=== PATIENT | female | born 1955 | race Caucasian/White ===

== ENCOUNTER 2017-04-30 03:55 | Inpatient (IN) | payer BC ==
[2017-04-30] MEDS ORDERED: Succinylcholine Chloride 20 MG/ML 10 ml SYRINGE FS ONE (03:59)
[2017-04-30] MEDS ORDERED: Fentanyl 20 MCG/ML 250 ML ONE (04:22)
[2017-04-30 04:36] LABS: #Eosinphils 0.1 thou/uL (0.0-0.7); #Lymphocytes 4.9 thou/uL (1.20-3.40); #Monocytes 0.3 thou/uL (0.11-0.59); %Basophils 0.4 % (0.0-1.0); %Eosinophils 0.6 % (0.0-10.0); %Lymphocytes 39.7 % (21.0-51.0); %Monocytes 2.2 % (0.0-10.0); Hematocrit 37.4 % (36.0-47.0); Mean Platelet Volume 7.3 fL (7.4-10.4); Red Blood Cell (RBC) Count 3.87 mill/uL (4.20-5.40); White Blood Cell (WBC) Count 12.3 thou/uL (4.8-10.8)
[2017-04-30 04:42] LABS: PTT 22.9 SEC (22.9-36.1); Prothrombin Time 12.5 SEC (12.0-14.7)
[2017-04-30 04:47] LABS: Amphetamine Not Detected (NotDetected); Methadone Not Detected (NotDetected); Methamphetamine Not Detected (NotDetected)
[2017-04-30 04:47] LABS: Sodium 141 mmol/L (135-148)
[2017-04-30 04:48] LABS: Mechanical Tidal Volume 450 ml; Mode SIMV; Modified Allen's Test POSITIVE; Pressure Support 10 cmH2O; Vent YES
[2017-04-30 05:03] LABS: ALT (SGPT) 16 U/L (8-55); AST (SGOT) 24 U/L (5-34); Acetaminophen Less than 6.0 mcg/mL (10.0-30.0); Alkaline Phosphatase 59 U/L (40-150); Anion Gap 13 mmol/L (10-20); BUN (Urea Nitrogen) 20 mg/dL (9.8-20.1); Bilirubin, Total 0.3 mg/dL (0.2-1.2); Calc. Creatinine Clearance 0 mL/min (70-130); Carbon Dioxide 24 mmol/L (23-31); Chloride 107 mmol/L (98-107); Estimated GFR-MDRD 77; Globulin 2.7 g/dL (2.4-3.5); Lipase 28 U/L (8-78); Magnesium 2.1 mg/dL (1.6-2.6); Protein, Total 6.6 g/dL (6.0-8.3); Salicylate Less than 8.0 mg/dL (15.0-30.0)
[2017-04-30 05:05] LABS: Lactic Acid - Sepsis 1.9 mmol/L (0.5-2.2)
[2017-04-30] MEDS ORDERED: Sodium Chloride 0.9% 1,000 ML IV SCH (05:45)
--- NOTE | 2017-04-30 06:54 | HP ---
REASON FOR ADMISSION: Overdose on Klonopin and Wellbutrin, acute respiratory failure with hypoxia. HISTORY OF PRESENT ILLNESS: Please note, the majority of this history is obtained by my talking to patient's who is at bedside, ER physician and prior records as patient is currently intubated. Per , she apparently was talking about her son and got upset. She was arguing a bit with her and finally went to bed. Around 3:00, patient was on the floor with all her pillows. The tried to wake her up, but she was slurring and was not herself. He called EMS and patient was brought to emergency room. In the ER, the patient was unresponsive and was choking on her vomitus. It is unclear what she overdosed on. The patient is on Klonopin, Wellbutrin, Synthroid, and acid pill as far as knows. She is on vent at present with tidal volume of 450, FiO2 of 60, PEEP of 5, and pressure support of 10. PAST MEDICAL AND SURGICAL HISTORY: History of hypothyroidism, depression, PTSD , questionable bipolar disorder, prior hospitalizations to inpatient psychiatric unit twice at [facility], once in [facility] in [place], breast augmentation surgery and hysterectomy. CURRENT MEDICATIONS: The goes to [facility] on [address] and we will obtain a complete list from there. For now per , she is on Klonopin, Wellbutrin, Synthroid and acid pill. ALLERGIES: To PHENERGAN and SULFA. PERSONAL HISTORY: Does not abuse alcohol or drugs. No history of smoking. Lives with her of 45 years. FAMILY HISTORY: Older sister from overdose. Mother has COPD. Father is healthy and is 85 years old. REVIEW OF SYSTEMS: Cannot be obtained as the patient is intubated and is obtunded. PHYSICAL EXAMINATION: GENERAL: Patient is a 61-year-old female who is currently intubated. VITAL SIGNS: Blood pressure 164/90, pulse 90 per minute, respiratory rate 14 per minute, saturating 94% on 60% FIO2 on the ventilator. The patient was hypothermic on arrival and is currently on a Lisa Hugger. NECK: Supple, no elevated JVD. EYES: Pupils are 3 mm and sluggishly reacting to light. Oral cavity mucous membranes are dry. Patient is orally intubated up to 22 cm on the endotracheal tube to the incisor, no exudates seen. CARDIOVASCULAR: S1, S2 heard. Regular rhythm. RESPIRATORY: Air entry 1+ bilateral. Scattered rhonchi plus bilateral. ABDOMEN: Soft, bowel sounds heard. No tenderness, rigidity or guarding. EXTREMITIES: No peripheral edema or calf tenderness. VASCULAR SYSTEM: Peripheral pulses 1+ bilateral. No ischemic ulcerations or gangrene. CENTRAL NERVOUS SYSTEM: No gross localizing signs seen. Patient is not oriented and is intubated. PSYCHIATRIC: Cannot be assessed due to her current cognitive status. LABORATORY DATA AND X-RAY FINDINGS: White count of 12, H&H is 12 and 37, platelet count 404 with 57% neutrophils, MCV is 96. PT, INR, PTT within normal limits. Blood gas done on 60% FIO2 shows a pH of 7.42, pCO2 of 37, pO2 of 76, potassium 3.4, sodium 141, BUN 20, creatinine 0.7, glucose 153. Liver enzymes within normal limits. Magnesium is 2.1, albumin is 3.9. Lipase is 28. Urine drug screen is negative. Plasma alcohol less than 10. Acetaminophen less than 6. Salicylates less than 8. Chest x-ray by my review shows no acute infiltrate. There appears to be paralysis or partial paralysis of right hemidiaphragm. EKG done shows normal sinus rhythm at 85 beats per minute. CLINICAL IMPRESSION AND PLAN: Patient will be admitted to ICU for acute respiratory failure with hypoxia and intubated for airway due to overdose. It is unclear what she overdosed on. She is normally on Klonopin, Wellbutrin, Synthroid, and acid pill. We will try to obtain her current medication list from [facility] on [address] [place] [address]. She will be on normal saline at 100 mL per hour along with DuoNeb q.6 hours. We will obtain a Pulmonary Critical Care consultation with Dr. Cardoso. Repeat blood gas will be obtained in 3 hours. She will be kept n.p.o. for now. We will continue to closely monitor her in ICU. KIMBERLY
[2017-04-30 07:36] LABS: Bilirubin Negative (Negative); Blood, Urine Negative (Negative); Glucose, Urine (Dipstick) Negative (Negative); Ketone, Urine Negative (Negative); Nitrite Negative (Negative); Protein, Urine (Dipstick) Negative (Neg-Trace); Urobilinogen 0.2 mg/dL (0.2-1.0)
[2017-04-30] MEDS ORDERED: Acetaminophen 325 MG TAB PO PRN (07:50)
[2017-04-30] MEDS ORDERED: Ondansetron ODT 4 MG TAB PO PRN (07:50)
[2017-04-30] MEDS ORDERED: Ondansetron HCl/PF 4 MG/2 ML Vial IVP PRN (07:50)
--- NOTE | 2017-04-30 08:50 | CT ---
NONCONTRAST HEAD CT: Date: 04/30/17 HISTORY: Overdose 1 hour prior to arrival. Altered mental status. COMPARISON: 06/27/14. TECHNIQUE: Noncontrast head CT is performed from skull base to skull vertex. FINDINGS: No parenchymal hemorrhage. No extra-axial hematoma. No midline shift. Basilar cisterns are patent. Br ain volume is age-appropriate. Cortical macias-white matter differentiation is preserved. Ventricles and sulci are patent and symmetric. Calvarium is intact. Adequate aeration of the sinuses and mastoid air cells. IMPRESSION: No acute intracranial process. POS: [facility]
[2017-04-30] MEDS: Enoxaparin Sodium 40 MG/0.4 ML SYRINGE SC SCH (09:08)
[2017-04-30] MEDS: Famotidine/PF 20 mg/2ml Vial SLOW IVP SCH ×2 (09:08→23:11)
--- NOTE | 2017-04-30 09:47 | RAD ---
1 VIEW CHEST: Date: 04/30/17 HISTORY: Altered mental status. Respiratory distress. COMPARISON: 06/30/16. FINDINGS: There is an endotracheal tube with the distal tip at the level of the clavicles. Nasogastric tube ext ends beyond the diaphragm. Distal tip is in the left upper quadrant. Normal cardiac silhouette. Lungs are hyperinflated. No consolidation or mass. No pneumothorax or osseous abnormalities. There is mild elevation of the right hemidiaphragm with decreased volume in the right lung. Significa nce is uncertain. IMPRESSION: 1. Diminished lung volume of the right hemithorax. No associated consolidation or obvious atelectasi s. 2. Endotracheal and nasogastric tube as above. POS: [facility]
[2017-04-30] MEDS: Levothyroxine Sodium 75 MCG TAB PO SCH (11:35)
--- NOTE | 2017-04-30 12:57 | CON ---
DATE OF CONSULTATION: 04/30/2017 SERVICE: Pulmonary Medicine. REASON FOR CONSULTATION: ICU patient. HISTORY OF PRESENT ILLNESS: The patient is a 61-year-old white female with past medical history significant for major depressive disorder. She was in her usual state of health. She had some suicidal ideation. She does have multiple medications including clonazepam, lamotrigine, and bupropion. She became encephalopathic and was brought to the emergency department. Because she was protecting her airway, she was subsequently intubated. She is resting currently on mechanical ventilation. She is doing some purposeful activity, but not following any commands. I cannot obtain any additional elements of the history from her. PAST MEDICAL HISTORY: 1. Major depressive disorder. 2. Hypothyroidism. 3. PTSD. PAST SURGICAL HISTORY: 1. Bilateral breast augmentation. 2. Hysterectomy. ALLERGIES: PHENERGAN and SULFA. MEDICATIONS: List for her inpatient medications was reviewed. No specific updates were made at this time. SOCIAL HISTORY: Negative for alcohol, tobacco or illicit drug use. She lives with her of 45 years and has no exposure to chemicals, dust asbestos or tuberculosis based on what he says. FAMILY HISTORY: Noncontributory. REVIEW OF SYSTEMS: This cannot be obtained as the patient is currently intubated and sedated. PHYSICAL EXAMINATION: VITAL SIGNS: Afebrile, pulse 89, blood pressure 97/44, respirations 14, saturation 96% on 31% FiO2 and PEEP of 5. GENERAL: The patient is intubated and under the influence of sedating medications. HEENT: Normocephalic, atraumatic. Sclerae are white. Conjunctivae pink. Oral and nasal mucosa is moist without lesions. LUNGS: Decent air entry. There is no prolonged expiratory phase, wheezing, rhonchi or crackles. HEART: Normal rate, regular. ABDOMEN: Soft, nontender, nondistended, bowel sounds positive. MUSCULOSKELETAL: No cyanosis or clubbing. No pitting in the bilateral lower extremities. NEUROLOGIC: Grossly nonfocal. LABORATORY DATA: WBC 12.3, hemoglobin 12.4, and platelets 404,000. INR 0.9. A pH 7.42, pCO2 37, pO2 76 on 60% FiO2 at the time. Basic metabolic profile, liver function studies are unremarkable. Lactate negative. Potassium 3.4. Urinalysis is unremarkable. Urine drug screen is negative for lithium, acetaminophen, salicylate, alcohol, and all other toxins. IMAGIN. CT of the brain demonstrates no acute intracranial abnormality. 2. Chest x-ray demonstrates right lower lobe infiltrate. There is elevation of the right hemidiaphragm, suggesting some degree of volume loss on the right base. The endotracheal tube is in good position and there is an enteric catheter coursing well below the level of the diaphragm. ASSESSMENT: 1. Acute hypoxic respiratory failure. 2. Atelectasis of the right lower lobe. 3. Metabolic encephalopathy. 4. Suicide attempt with polysubstance drug overdose. PLAN: We will let her sleep off her medications. We will hold sedation. If she wakes up smoothly, extubation will be considered. Otherwise, we will have to put her back down this evening with a little bit of propofol and/or fentanyl. If she wakes up smoothly; however, a spontaneous breathing trial and possible extubation will be considered. We will wean oxygen as tolerated. We will watch for developing signs or symptoms of sepsis. If present, antibiotics may be considered. Critical care time: 30 minutes. MTDD
--- NOTE | 2017-04-30 14:15 | PDOC.PN ---
- Subjective Encounter Start Date: 04/30/17 Encounter Start Time: 14:13 Subjective: remains intubated. at bedside.care discussed -: remain sedated for now - Objective MAR Reviewed: Yes Vital Signs & Weight: Vital Signs (12 hours) Pulse Resp BP Pulse Ox 04/30/17 12:16 88 11 L 96 04/30/17 10:58 89 97/44 L 04/30/17 08:10 89 98/46 L Result Diagrams: 04/30/17 04:21 04/30/17 04:21 Phys Exam - Physical Examination Constitutional: NAD intubated HEENT: PERRLA, moist MMs, sclera anicteric, oral pharynx no lesions Neck: no nodes, no JVD, supple, full ROM Respiratory: no wheezing, no rales, no rhonchi, clear to auscultation bilateral Cardiovascular: RRR, no significant murmur Gastrointestinal: soft, non-tender, no distention, positive bowel sounds Musculoskeletal: no edema, pulses present Neurological: moves all 4 limbs Deviation from normal: sedated Dx/Plan (1) Acute hypoxemic respiratory failure Code(s): J96.01 - ACUTE RESPIRATORY FAILURE WITH HYPOXIA Status: Acute (2) Overdose Code(s): T50.901A - POISONING BY UNSP DRUG/MEDS/BIOL SUBST, ACCIDENTAL, INIT Status: Acute (3) Hypokalemia Code(s): E87.6 - HYPOKALEMIA Status: Acute (4) Anxiety and depression Code(s): F41.9 - ANXIETY DISORDER, UNSPECIFIED; F32.9 - MAJOR DEPRESSIVE DISORDER, SINGLE EPISODE, UNSPECIFIED Status: Chronic (5) Bipolar disorder Code(s): F31.9 - BIPOLAR DISORDER, UNSPECIFIED Status: Chronic (6) Hypothyroidism Code(s): E03.9 - HYPOTHYROIDISM, UNSPECIFIED Status: Chronic - Plan plan discussed w/ family, DVT proph w/SCDs cont supportive care. Veny weaning per PCCM> -: am labs.hemodynamically stable. -: kevin took about 15-20 Tabs ech of klonopin,wellbutrin & Lamotrigine -: continous cariac monitoring. -: replace & recheck Potasium * . Review of Systems - Review of Systems Other: can not be obtained due to sedation and intubated state - Medications/Allergies Allergies/Adverse Reactions: Allergies Allergy/AdvReac Type Severity Reaction Status Date / Time promethazine [From Phenergan] Allergy Verified 07/08/16 17:13 Sulfa (Sulfonamide Allergy Verified 07/08/16 17:13 Antibiotics) Medications: Current Medications Acetaminophen (Tylenol) 650 mg KS Q4H PRN PRN Reason: Headache/Fever or Pain Acetaminophen (Tylenol) 650 mg PO Q4H PRN PRN Reason: Headache/Fever or Pain Stop: 04/30/17 17:00 Albuterol/Ipratropium (Duoneb) 3 ml NEB [id number] [facility] Last Admin: 04/30/17 12:16 Dose: 3 ml Enoxaparin Sodium (Lovenox) 40 mg SC 0900 [facility] Last Admin: 04/30/17 09:08 Dose: 40 mg Famotidine (Pepcid) 20 mg SLOW IVP Q12HR [facility] Last Admin: 04/30/17 09:08 Dose: 20 mg Sodium Chloride (1/2 Normal Saline) 1,000 mls @ 75 mls/hr IV .[id number] [facility] Levothyroxine Sodium (Synthroid) 75 mcg PO 0600 [facility] Last Admin: 04/30/17 11:35 Dose: Not Given Ondansetron HCl (Zofran) 4 mg IVP Q6H PRN PRN Reason: Nausea/Vomiting Stop: 04/30/17 17:00 Ondansetron HCl (Zofran Odt) 4 mg PO Q6H PRN PRN Reason: Nausea/Vomiting Stop: 04/30/17 17:00 Potassium Chloride (Klor-Con) 40 meq PO Q4H [facility] Stop: 04/30/17 16:31 Sodium Chloride (Flush - Normal Saline) 10 ml IVF Q12HR [facility] Last Admin: 04/30/17 09:14 Dose: 10 ml Sodium Chloride (Flush - Normal Saline) 10 ml IVF PRN PRN PRN Reason: Saline Flush
[2017-04-30] MEDS: Sodium Chloride 0.45% 1,000 ML IV SCH ×2 (14:48→23:13)
[2017-04-30 17:04] VITALS: BMI 19.8
[2017-04-30] MEDS ORDERED: Propofol 1,000 MG/100 ML VIAL IV ONE (19:01)
[2017-04-30] MEDS ORDERED: Propofol 1,000 MG/100 ML VIAL IV PRN (19:17)
[2017-04-30] MEDS ORDERED: FLU VACC QS2017-18 36 mo. & older 0.5 ML SYRINGE IM ONE (21:00)
[2017-05-01 05:05] LABS: Anion Gap 9 mmol/L (10-20); BUN (Urea Nitrogen) 14 mg/dL (9.8-20.1); Calc. Creatinine Clearance 80 mL/min (70-130); Carbon Dioxide 24 mmol/L (23-31); Chloride 107 mmol/L (98-107); Estimated GFR-MDRD 89; Magnesium 1.7 mg/dL (1.6-2.6); Phosphorus 2.3 mg/dL (2.3-4.7)
[2017-05-01 05:08] LABS: #Lymphocytes 0.8 thou/uL (1.20-3.40); #Monocytes 0.4 thou/uL (0.11-0.59); #Neutrophils 8.3 thou/uL (1.40-6.50); %Basophils 0.1 % (0.0-1.0); %Eosinophils 0.2 % (0.0-10.0); %Lymphocytes 7.9 % (21.0-51.0); %Monocytes 4.4 % (0.0-10.0); Hematocrit 32.5 % (36.0-47.0); Mean Platelet Volume 7.5 fL (7.4-10.4); Red Blood Cell (RBC) Count 3.29 mill/uL (4.20-5.40); White Blood Cell (WBC) Count 9.5 thou/uL (4.8-10.8)
[2017-05-01] MEDS: Levothyroxine Sodium 75 MCG TAB PO SCH (06:26)
[2017-05-01] MEDS: Enoxaparin Sodium 40 MG/0.4 ML SYRINGE SC SCH (08:45)
[2017-05-01] MEDS: Famotidine/PF 20 mg/2ml Vial SLOW IVP SCH (08:45)
--- NOTE | 2017-05-01 14:10 | PDOC.PN ---
- Subjective Encounter Start Date: 05/01/17 Encounter Start Time: 14:09 Subjective: remains intubated .failed weaning trial this am d/y agitation - Objective Vital Signs & Weight: Vital Signs (12 hours) Temp Pulse Resp BP Pulse Ox 05/01/17 14:07 107 H 124/54 L 05/01/17 13:25 98 05/01/17 12:00 19 05/01/17 11:00 97.6 F 05/01/17 10:00 16 05/01/17 09:54 91 112/57 L 05/01/17 08:00 98.3 F 91 12 100 05/01/17 07:00 98.2 F 05/01/17 06:00 13 05/01/17 04:00 97.7 F 20 05/01/17 02:40 98 Weight Admit Weight 2.032 oz Most Recent Monitor Data Heart Rate from ECG 101 NIBP 119/55 NIBP BP-Mean 80 Respiration from ECG 15 SpO2 98 I&O: 04/30/17 05/01/17 05/02/17 06:59 06:59 06:59 Intake Total 2265 Output Total 2320 355 Balance -55 -355 Result Diagrams: 05/01/17 03:58 05/01/17 03:58 Additional Labs: Microbiology 04/30/17 04:19 Venous blood - Right Hand Blood Culture - Preliminary Specimen has been received and culture in progress. No Growth to date. 04/30/17 04:10 Venous blood - Right Arm Blood Culture - Preliminary Specimen has been received and culture in progress. No Growth to date. Phys Exam - Physical Examination Constitutional: NAD HEENT: PERRLA, moist MMs, sclera anicteric, 2+ tonsils Neck: no nodes, no JVD, supple, full ROM Respiratory: no wheezing, no rales, no rhonchi Cardiovascular: RRR, no significant murmur Gastrointestinal: soft, non-tender, no distention, positive bowel sounds Musculoskeletal: no edema, pulses present sedated Deviation from normal: sedated Dx/Plan (1) Acute hypoxemic respiratory failure Code(s): J96.01 - ACUTE RESPIRATORY FAILURE WITH HYPOXIA Status: Acute (2) Overdose Code(s): T50.901A - POISONING BY UNSP DRUG/MEDS/BIOL SUBST, ACCIDENTAL, INIT Status: Acute (3) Hypokalemia Code(s): E87.6 - HYPOKALEMIA Status: Acute (4) Anxiety and depression Code(s): F41.9 - ANXIETY DISORDER, UNSPECIFIED; F32.9 - MAJOR DEPRESSIVE DISORDER, SINGLE EPISODE, UNSPECIFIED Status: Chronic (5) Bipolar disorder Code(s): F31.9 - BIPOLAR DISORDER, UNSPECIFIED Status: Chronic (6) Hypothyroidism Code(s): E03.9 - HYPOTHYROIDISM, UNSPECIFIED Status: Chronic - Plan DVT proph w/SCDs Vent weaning per PCCM.cont supportive care -: BP much better. -: cont continous cardiac monitoring -: discussed w * . Review of Systems - Review of Systems Other: can not be obtained due to intubation ans sedation - Medications/Allergies Allergies/Adverse Reactions: Allergies Allergy/AdvReac Type Severity Reaction Status Date / Time promethazine [From Phenergan] Allergy Verified 07/08/16 17:13 Sulfa (Sulfonamide Allergy Verified 07/08/16 17:13 Antibiotics) Medications: Current Medications Acetaminophen (Tylenol) 650 mg MD Q4H PRN PRN Reason: Headache/Fever or Pain Albuterol/Ipratropium (Duoneb) 3 ml NEB [id number] Last Admin: 05/01/17 14:03 Dose: 3 ml Enoxaparin Sodium (Lovenox) 40 mg SC 0900 [facility] Last Admin: 05/01/17 08:45 Dose: 40 mg Sodium Chloride (1/2 Normal Saline) 1,000 mls @ 50 mls/hr IV .Q20H [facility] Levothyroxine Sodium (Synthroid) 75 mcg PO 0600 [facility] Last Admin: 05/01/17 06:26 Dose: Not Given Sodium Chloride (Flush - Normal Saline) 10 ml IVF Q12HR [facility] Last Admin: 05/01/17 08:46 Dose: 10 ml Sodium Chloride (Flush - Normal Saline) 10 ml IVF PRN PRN PRN Reason: Saline Flush
[2017-05-01] MEDS: Sodium Chloride 0.45% 1,000 ML IV SCH (14:57)
--- NOTE | 2017-05-01 15:41 | PRG ---
DATE OF SERVICE: 05/01/2017 SERVICE: Pulmonary Medicine. INTERVAL HISTORY: The patient is doing very well from a respiratory standpoint. She is breathing co mfortably on mechanical ventilation this morning. Her mentation is a little bit improved. She is wi de awake on a sedation holiday which is fantastic. She is following some simple commands. She is a little bit excitable. PHYSICAL EXAMINATION: VITAL SIGNS: Afebrile, pulse 101, blood pressure 119/55, respirations 15, saturation 98% on 27% FiO2 . GENERAL: The patient is intubated and under the influence of some sedation. HEENT: Normocephalic, atraumatic. Sclerae are white, conjunctivae pink. Oral and nasal mucosa is m oist without lesions. LUNGS: Excellent air entry. Crackles and rhonchi are present, but change with cough. HEART: Tachycardic. Regular. ABDOMEN: Soft, nontender, nondistended. Bowel sounds positive. MUSCULOSKELETAL: No cyanosis or clubbing. No pitting in the bilateral lower extremities. NEUROLOGIC: Grossly nonfocal. LABORATORY DATA: WBC 9.5 and stable, hemoglobin 10.6, platelets 279,000. Basic metabolic profile, m agnesium and phosphorus are unremarkable. Potassium is improved to 4.0. Anion gap is cleared. Urin alysis is negative. Blood cultures x2 are negative. ASSESSMENT: 1. Acute hypoxic respiratory failure, improving. 2. Atelectasis of the right lower lobe. 3. Metabolic encephalopathy. 4. Suicide attempt secondary to polysubstance overdose. PLAN: We will continue the spontaneous breathing trial on a sedation holiday. If she meets criteria , extubation will be considered. Pulmonary Critical Care will continue to follow while she remains i house. Critical care time: 30 minutes.
[2017-05-02] MEDS: Levothyroxine Sodium 75 MCG TAB PO SCH (06:34)
[2017-05-02] MEDS: Enoxaparin Sodium 40 MG/0.4 ML SYRINGE SC SCH (08:57)
[2017-05-02] MEDS: Sodium Chloride 0.45% 1,000 ML IV SCH (09:32)
[2017-05-02] MEDS: Acetaminophen 650 MG Suppository PR PRN ×2 (13:19→17:45)
--- NOTE | 2017-05-02 13:57 | PRG ---
DATE OF SERVICE: 05/02/2017 SUBJECTIVE: Chivo Arambula was extubated yesterday. She is in no distress. She is still somnolent, but does arouse. PHYSICAL EXAMINATION: VITAL SIGNS: She is afebrile, heart rate is 111, blood pressure 148/70, respiratory rate in the 20s. LUNGS: Clear. HEART: Regular rhythm. ABDOMEN: Soft. LABORATORY DATA: There is no lab today. IMPRESSION: Clonazepam overdose, status post extubation. PLAN: Transfer out of Critical Care Unit. She appears to be medically stable.
[2017-05-02] MEDS ORDERED: Lidocaine Viscous Sol 2% 15 ml UD Cup SSP PRN (14:52)
--- NOTE | 2017-05-02 14:52 | PDOC.PN ---
- Subjective Encounter Start Date: 05/02/17 Encounter Start Time: 14:50 Subjective: somnolent.extubarted yesterday.tolerated well -: daughter at bedside. no new events -: sore throat - Objective MAR Reviewed: Yes Vital Signs & Weight: Vital Signs (12 hours) Temp Pulse Resp Pulse Ox 05/02/17 12:00 99.7 F H 05/02/17 08:18 118 H 19 97 05/02/17 08:00 99.2 F 118 H 19 95 05/02/17 04:00 99.9 F H Weight Admit Weight 2.032 oz Most Recent Monitor Data Heart Rate from ECG 111 NIBP 148/70 NIBP BP-Mean 87 Respiration from ECG 24 SpO2 95 I&O: 05/01/17 05/02/17 05/03/17 06:59 06:59 06:59 Intake Total 2265 814 30 Output Total 2320 1825 820 Balance -55 -1011 -790 Result Diagrams: 05/01/17 03:58 05/01/17 03:58 Additional Labs: Microbiology 04/30/17 04:19 Venous blood - Right Hand Blood Culture - Preliminary Specimen has been received and culture in progress. No Growth to date. 04/30/17 04:19 Venous blood - Right Hand Blood Culture - Preliminary NO GROWTH AT 48 HOURS 04/30/17 04:10 Venous blood - Right Arm Blood Culture - Preliminary Specimen has been received and culture in progress. No Growth to date. 04/30/17 04:10 Venous blood - Right Arm Blood Culture - Preliminary NO GROWTH AT 48 HOURS Phys Exam - Physical Examination Constitutional: NAD HEENT: PERRLA, moist MMs, sclera anicteric, oral pharynx no lesions Neck: no nodes, no JVD, supple, full ROM Respiratory: no wheezing, no rales, no rhonchi, clear to auscultation bilateral Cardiovascular: RRR, no significant murmur Gastrointestinal: soft, non-tender, no distention, positive bowel sounds Musculoskeletal: no edema, pulses present Neurological: non-focal, normal sensation, moves all 4 limbs Psychiatric: normal affect, A&O x 3 Skin: no rash Dx/Plan (1) Overdose Code(s): T50.901A - POISONING BY UNSP DRUG/MEDS/BIOL SUBST, ACCIDENTAL, INIT Status: Acute (2) Hypokalemia Code(s): E87.6 - HYPOKALEMIA Status: Acute (3) Anxiety and depression Code(s): F41.9 - ANXIETY DISORDER, UNSPECIFIED; F32.9 - MAJOR DEPRESSIVE DISORDER, SINGLE EPISODE, UNSPECIFIED Status: Chronic (4) Bipolar disorder Code(s): F31.9 - BIPOLAR DISORDER, UNSPECIFIED Status: Chronic (5) Hypothyroidism Code(s): E03.9 - HYPOTHYROIDISM, UNSPECIFIED Status: Chronic (6) Acute hypoxemic respiratory failure Code(s): J96.01 - ACUTE RESPIRATORY FAILURE WITH HYPOXIA Status: Resolved - Plan incentive spirometry, out of bed/ambulate, DVT proph w/SCDs Successfully extubated.hemodynamically stable.Ok to transfer to medical -: [facility] eval. -: am labs * . Review of Systems - Review of Systems Constitutional: Weakness, Malaise. negative: Fever, Chills, Sweats, Other Respiratory: negative: Cough, Dry, Shortness of Breath, Hemoptysis, SOB with Excertion, Pleuritic Pain, Sputum, Wheezing Cardiovascular: negative: Chest Pain, Palpitations, Orthopnea, Paroxysmal Noc. Dyspnea, Edema, Light Headedness, Other Gastrointestinal: negative: Nausea, Vomiting, Abdominal Pain, Diarrhea, Constipation, Melena, Hematochezia, Other Genitourinary: negative: Dysuria, Frequency, Incontinence, Hematuria, Retention , Other Musculoskeletal: negative: Neck Pain, Shoulder Pain, Arm Pain, Back Pain, Hand Pain, Leg Pain, Foot Pain, Other Neurological: negative: Weakness, Numbness, Incoordination, Change in Speech, Confusion, Seizures, Other - Medications/Allergies Allergies/Adverse Reactions: Allergies Allergy/AdvReac Type Severity Reaction Status Date / Time promethazine [From Phenergan] Allergy Verified 07/08/16 17:13 Sulfa (Sulfonamide Allergy Verified 07/08/16 17:13 Antibiotics) Medications: Current Medications Acetaminophen (Tylenol) 650 mg ME Q4H PRN PRN Reason: Headache/Fever or Pain Last Admin: 05/02/17 13:19 Dose: 650 mg Albuterol/Ipratropium (Duoneb) 3 ml NEB [id number] [facility] Last Admin: 05/02/17 08:18 Dose: 3 ml Enoxaparin Sodium (Lovenox) 40 mg SC 0900 [facility] Last Admin: 05/02/17 08:57 Dose: 40 mg Sodium Chloride (1/2 Normal Saline) 1,000 mls @ 50 mls/hr IV .Q20H [facility] Last Admin: 05/02/17 09:32 Dose: 1,000 mls Levothyroxine Sodium (Synthroid) 75 mcg PO 0600 [facility] Last Admin: 05/02/17 06:34 Dose: 75 mcg Sodium Chloride (Flush - Normal Saline) 10 ml IVF Q12HR [facility] Last Admin: 05/02/17 09:00 Dose: 10 ml Sodium Chloride (Flush - Normal Saline) 10 ml IVF PRN PRN PRN Reason: Saline Flush
[2017-05-02] MEDS: Acetaminophen 325 MG TAB PO PRN (22:44)
[2017-05-03 04:37] LABS: #Eosinphils 0.2 thou/uL (0.0-0.7); #Lymphocytes 1.3 thou/uL (1.20-3.40); #Monocytes 0.4 thou/uL (0.11-0.59); #Neutrophils 5.2 thou/uL (1.40-6.50); %Basophils 0.6 % (0.0-1.0); %Eosinophils 3.5 % (0.0-10.0); %Lymphocytes 17.7 % (21.0-51.0); %Monocytes 5.2 % (0.0-10.0); Hematocrit 33.5 % (36.0-47.0); Mean Platelet Volume 7.3 fL (7.4-10.4); Red Blood Cell (RBC) Count 3.46 mill/uL (4.20-5.40); White Blood Cell (WBC) Count 7.1 thou/uL (4.8-10.8)
[2017-05-03 04:59] LABS: Anion Gap 9 mmol/L (10-20); BUN (Urea Nitrogen) 8 mg/dL (9.8-20.1); Calc. Creatinine Clearance 88 mL/min (70-130); Calcium 8.9 mg/dL (7.8-10.44); Carbon Dioxide 26 mmol/L (23-31); Chloride 105 mmol/L (98-107); Estimated GFR-MDRD Greater than 90
[2017-05-03] MEDS: Levothyroxine Sodium 75 MCG TAB PO SCH (06:12)
[2017-05-03] MEDS: Sodium Chloride 0.45% 1,000 ML IV SCH (06:13)
[2017-05-03] MEDS: Acetaminophen 325 MG TAB PO PRN ×2 (09:00→19:31)
[2017-05-03] MEDS: Enoxaparin Sodium 40 MG/0.4 ML SYRINGE SC SCH (09:00)
--- NOTE | 2017-05-03 14:30 | PDOC.PN ---
- Subjective Encounter Start Date: 05/03/17 Encounter Start Time: 14:30 Subjective: feels well.no new complaints except sore throat - Objective MAR Reviewed: Yes Vital Signs & Weight: Vital Signs (12 hours) Temp Pulse Resp BP BP Pulse Ox 05/03/17 13:38 110 H 14 05/03/17 11:47 98.3 F 113 H 16 109/62 94 L 05/03/17 10:24 98.6 F 114 H 18 168/75 H 94 L 05/03/17 09:30 98.6 F 114 H 18 05/03/17 08:00 98.8 F 05/03/17 07:52 111 H 18 05/03/17 04:00 99.2 F Weight Admit Weight 2.032 oz Most Recent Monitor Data Heart Rate from ECG 111 NIBP 134/58 NIBP BP-Mean 73 Respiration from ECG 21 SpO2 93 I&O: 05/02/17 05/03/17 05/04/17 06:59 06:59 06:59 Intake Total 814 1669 251 Output Total 1825 2760 500 Balance -1011 -1091 -249 Result Diagrams: 05/03/17 04:01 05/03/17 04:01 Phys Exam - Physical Examination Constitutional: NAD HEENT: PERRLA, moist MMs, sclera anicteric, oral pharynx no lesions Neck: no nodes, no JVD, supple, full ROM Respiratory: no wheezing, no rales, no rhonchi, clear to auscultation bilateral Cardiovascular: RRR, no significant murmur Gastrointestinal: soft, non-tender, no distention, positive bowel sounds Musculoskeletal: no edema, pulses present Neurological: non-focal, normal sensation, moves all 4 limbs Psychiatric: normal affect, A&O x 3 Skin: no rash Dx/Plan (1) Overdose Code(s): T50.901A - POISONING BY UNSP DRUG/MEDS/BIOL SUBST, ACCIDENTAL, INIT Status: Acute (2) Hypokalemia Code(s): E87.6 - HYPOKALEMIA Status: Acute (3) Anxiety and depression Code(s): F41.9 - ANXIETY DISORDER, UNSPECIFIED; F32.9 - MAJOR DEPRESSIVE DISORDER, SINGLE EPISODE, UNSPECIFIED Status: Chronic (4) Bipolar disorder Code(s): F31.9 - BIPOLAR DISORDER, UNSPECIFIED Status: Chronic (5) Hypothyroidism Code(s): E03.9 - HYPOTHYROIDISM, UNSPECIFIED Status: Chronic (6) Acute hypoxemic respiratory failure Code(s): J96.01 - ACUTE RESPIRATORY FAILURE WITH HYPOXIA Status: Resolved - Plan DVT proph w/SCDs [facility] recommend inpt psych.Pt remains a threat to herself. -: family wants to take her home.will discuss.not stable for DC -: hemodynamically stable. -: replace and recheck Potassium. * . Review of Systems - Review of Systems Constitutional: negative: Fever, Chills, Sweats, Weakness, Malaise, Other Respiratory: negative: Cough, Dry, Shortness of Breath, Hemoptysis, SOB with Excertion, Pleuritic Pain, Sputum, Wheezing Cardiovascular: negative: Chest Pain, Palpitations, Orthopnea, Paroxysmal Noc. Dyspnea, Edema, Light Headedness, Other Gastrointestinal: negative: Nausea, Vomiting, Abdominal Pain, Diarrhea, Constipation, Melena, Hematochezia, Other Genitourinary: negative: Dysuria, Frequency, Incontinence, Hematuria, Retention , Other Musculoskeletal: negative: Neck Pain, Shoulder Pain, Arm Pain, Back Pain, Hand Pain, Leg Pain, Foot Pain, Other Neurological: negative: Weakness, Numbness, Incoordination, Change in Speech, Confusion, Seizures, Other - Medications/Allergies Allergies/Adverse Reactions: Allergies Allergy/AdvReac Type Severity Reaction Status Date / Time promethazine [From Phenergan] Allergy Verified 07/08/16 17:13 Sulfa (Sulfonamide Allergy Verified 07/08/16 17:13 Antibiotics) Medications: Current Medications Acetaminophen (Tylenol) 650 mg SD Q4H PRN PRN Reason: Headache/Fever or Pain Last Admin: 05/02/17 17:45 Dose: 650 mg Acetaminophen (Tylenol) 650 mg PO Q6H PRN PRN Reason: Pain Last Admin: 05/03/17 09:00 Dose: 650 mg Albuterol/Ipratropium (Duoneb) 3 ml NEB [id number] [facility] Last Admin: 05/03/17 13:38 Dose: 3 ml Enoxaparin Sodium (Lovenox) 40 mg SC 0900 [facility] Last Admin: 05/03/17 09:00 Dose: 40 mg Levothyroxine Sodium (Synthroid) 75 mcg PO 0600 [facility] Last Admin: 05/03/17 06:12 Dose: 75 mcg Lidocaine HCl (Xylocaine 2% Viscous) 15 ml SSP QID PRN PRN Reason: SORE THROAT Sodium Chloride (Flush - Normal Saline) 10 ml IVF Q12HR [facility] Last Admin: 05/03/17 09:01 Dose: 10 ml Sodium Chloride (Flush - Normal Saline) 10 ml IVF PRN PRN PRN Reason: Saline Flush
[2017-05-03] MEDS ORDERED: Lorazepam 2 MG/ML VIAL SLOW IVP PRN (15:24)
[2017-05-03] MEDS ORDERED: ALPRAZolam 0.25 MG TAB PO PRN (15:26)
[2017-05-03] MEDS ORDERED: Potassium Chloride 10 MEQ TAB PO SCH (15:30)
[2017-05-03] MEDS ORDERED: Potassium Chloride 40 MEQ in Sodium Chloride 0.9% 500 ML IVPB SCH (15:30)
[2017-05-03 17:09] VITALS: BP 148/77; TEMP 99.2
--- NOTE | 2017-05-04 01:42 | DIS ---
DATE OF ADMISSION: 04/30/2017 DATE OF DISCHARGE: 05/03/2017 DISCHARGE DISPOSITION: Inpatient psychiatric unit at [facility]. DISCHARGE MEDICATIONS: As per the psychiatrist. CONDITION AT THE TIME OF DISCHARGE: Stable and medically cleared for discharge. CONSULTATIONS: Pulmonary Critical Care, Dr. Cardoso. [facility]. PROCEDURES: CT scan of the brain upon presentation, which is unremarkable for acute disease. Intubation with subsequent extubation. HISTORY OF PRESENTING ILLNESS: Ms. Arambula is a very pleasant 61-year-old female with history of mult iple suicidal ideation attempts requiring intubation and hospitalization as well as hypothyroidism, P TSD, who presented to the emergency room after once again attempting suicide with overdosing on Klono pin and Wellbutrin. She presented with unable to control her airway and was promptly intubated in e emergency room and was admitted to critical care unit. She was otherwise hemodynamically stable ex cept for some hypotension, which was managed with IV fluids. Please see admission history and physic al for further details. HOSPITAL COURSE: The patient was seen by Pulmonary Critical Care Physician, Dr. Cardoso, who followe d along. She was eventually extubated and transferred to medical floor. [facility] saw the patient after she was medically. She is not deemed safe to go back home because of persistent suicidal ideation an d the risk of harm to self. She has been committed to inpatient psychiatric unit and awaiting discha rge as she has been accepted and a bed has been made available for her. I discussed the care extensively with her and her daughter, who are very involved in her care . They really do not want her to go to the [facility], but unfortunately there i s no choice. They were reassured and they continued to provide support to the patient as well. She will be discharged once transportation is arranged. She was seen and examined prior to discharge. Please see hospitalist progress note from today's date for further details including srom-uy-ebpt interaction.
== END 2017-05-03 19:55 | DRG 917 ==
LOC: ERS 03:55 → CCU 07:23 → T4-A 05-03 09:10
PROVIDERS: ADMIT Internal Medicine; ATTEND Internal Medicine
PROC: 5A1935Z Respiratory Ventilation, Less than 24 Consecutive Hours (ICD-10-PCS; principal; 2017-05-01)
PROC: 0BH17EZ Insertion of Endotracheal Airway into Trachea, Via Natural or Artificial Opening (ICD-10-PCS; 2017-05-01)
PROC: 0BP1XDZ Removal of Intraluminal Device from Trachea, External Approach (ICD-10-PCS; 2017-05-01)
DX: T42.4X2A Poisoning by benzodiazepines, intentional self-harm, initial encounter (principal); J96.01 Acute respiratory failure with hypoxia; G92 Toxic encephalopathy; I95.9 Hypotension, unspecified; J98.11 Atelectasis; T43.292A Poisoning by other antidepressants, intentional self-harm, initial encounter; F31.9 Bipolar disorder, unspecified; F43.10 Post-traumatic stress disorder, unspecified; F41.9 Anxiety disorder, unspecified; E03.9 Hypothyroidism, unspecified; E87.6 Hypokalemia; R41.82 Altered mental status, unspecified; Z88.2 Allergy status to sulfonamides; Z88.8 Allergy status to other drugs, medicaments and biological substances; Z91.5 Personal history of self-harm; Z83.6 Family history of other diseases of the respiratory system; Y92.003 Bedroom of unspecified non-institutional (private) residence as the place of occurrence of the external cause
CPT/HCPCS: 36415; 36416; 51702; 70450; 71010; 80048; 80053; 80178; 80306; 80307; 81003; 82805; 83605; 83690; 83735; 84100; 85025; 85610; 85730; 87040; 90471; 90682; 93005; 94002; 94003; 94640; 94760; 96365; 96366; 96375; 99292; A4216; G0008; J1650; J2704; J3010; J3480; J7050; J7620; Q2036; S0028

== ENCOUNTER 2017-11-10 08:19 | Outpatient (CLI) | payer BC | END 2017-11-10 08:20 | disposition home or self-care (01) | LOC: BICMAMMO 08:19 | PROVIDERS: ATTEND Family Medicine | DX: Z12.31 Encounter for screening mammogram for malignant neoplasm of breast (principal); R92.1 Mammographic calcification found on diagnostic imaging of breast | CPT/HCPCS: 77063; 77067 ==

== ENCOUNTER 2018-02-09 16:44 | Emergency (ER) | payer BC ==
[~2018-02-09 16:44] MED LIST: ISOVUE-370 76%-LOCM 1 ML ONE
[2018-02-09 20:01] LABS: #Basophils 0.1 thou/uL (0.0-0.2); #Eosinphils 0.1 thou/uL (0.0-0.7); #Lymphocytes 2.3 thou/uL (1.20-3.40); #Monocytes 0.4 thou/uL (0.11-0.59); %Basophils 0.6 % (0.0-1.0); %Lymphocytes 23.2 % (21.0-51.0); %Monocytes 3.8 % (0.0-10.0); %Neutrophils 71.4 % (42.0-75.0); Hemoglobin 13.5 g/dL (12.0-16.0); Mean Corpuscular HGB CONC 33.4 g/dL (32.0-36.0); Mean Corpuscular Hemoglobin 31.4 pg (27.0-31.0); Mean Platelet Volume 7.2 fL (7.4-10.4); Platelet Count 403 thou/uL (130-400); RBC Distribution Width 12.1 % (11.5-14.5); Red Blood Cell (RBC) Count 4.31 mill/uL (4.20-5.40); White Blood Cell (WBC) Count 9.9 thou/uL (4.8-10.8)
[2018-02-09] MEDS ORDERED: Ondansetron HCl/PF 4 MG/2 ML Vial ONE (20:20)
[2018-02-09 20:23] LABS: ALT (SGPT) 17 U/L (8-55); AST (SGOT) 23 U/L (5-34); Albumin 4.6 g/dL (3.4-4.8); Alkaline Phosphatase 81 U/L (40-150); Anion Gap 13 mmol/L (10-20); BUN (Urea Nitrogen) 17 mg/dL (9.8-20.1); Bilirubin, Total 0.3 mg/dL (0.2-1.2); Calc. Creatinine Clearance 0 mL/min (70-130); Calcium 9.6 mg/dL (7.8-10.44); Carbon Dioxide 27 mmol/L (23-31); Chloride 101 mmol/L (98-107); Estimated GFR-MDRD 60; Globulin 3.2 g/dL (2.4-3.5); Glucose 101 mg/dL (80-115); Potassium 4.2 mmol/L (3.5-5.1); Protein, Total 7.8 g/dL (6.0-8.3); Sodium 137 mmol/L (136-145)
[2018-02-09 20:32] LABS: Bilirubin Negative (Negative); Blood, Urine Moderate (Negative); Clarity CLEAR (Clear); Glucose, Urine (Dipstick) Negative (Negative); Leukocyte Moderate (Negative); Nitrite Positive (Negative); Protein, Urine (Dipstick) Trace mg/dL (Neg-Trace); Specific Gravity, Urine 1.009 (1.002-1.036); Urobilinogen 0.2 mg/dL (0.2-1.0); pH, Urine 6.5 (5.0-9.0)
[2018-02-09 20:35] LABS: Bacteria/HPF 1+ HPF (None Seen); Hyaline Casts/LPF 0-3 HYALINE CAST LPF (0-3 Hyaline); Pathc Cast-AUWi Flag 0.14 (0-2.49); RBC/HPF 21-50 HPF (0-3); Squamous Epithelial None Seen HPF (0-3); WBC/HPF 21-50 HPF (0-3)
--- NOTE | 2018-02-09 21:39 | CT ---
HISTORY: 62-year-old who presents to the Emergency Room complaining of suprapubic pain for two days. Contrast enhanced CT images of the abdomen and pelvis obtained after administration of IV contrast. The lung bases are unremarkable. No evidence of free intraperitoneal air seen. The liver and spleen are unremarkable. The gallbladder is within normal limits. The pancreas is unrem arkable. Adrenal glands and kidneys are unremarkable. No evidence of hydroureteronephrosis or renal masses seen. No evidence of periaortic lymphadenopathy seen. A large amount of stool was seen in the colon compatible with moderate to severe constipation predomi nantly in the ascending and transverse colon. The uterus appears to have been surgically removed. IMPRESSION: Constipation. POS: LARISA
[2018-02-09] MEDS ORDERED: Magnesium Citrate 300 ML BOT ONE (22:27)
== END 2018-02-09 22:39 | disposition home or self-care (01) ==
LOC: ERS 16:44
DX: N39.0 Urinary tract infection, site not specified (principal); K59.00 Constipation, unspecified; E03.9 Hypothyroidism, unspecified; F41.9 Anxiety disorder, unspecified; F32.9 Major depressive disorder, single episode, unspecified
CPT/HCPCS: 36415; 74177; 80053; 81003; 81015; 83605; 85025; 87040; 87077; 87086; 87186; 96360; 96361; J2270; J2405

== ENCOUNTER 2018-05-09 13:55 | Emergency (ER) | payer BC ==
[2018-05-09] MEDS ORDERED: Adacel (T-DAP) 0.5 ML SYRINGE ONE (14:23)
[2018-05-09] MEDS ORDERED: Lidocaine 1% w/Epinephrine 1:100K 20 ML VIAL ONE (14:23)
[2018-05-09] MEDS ORDERED: Bacitracin Zinc 1 Packet ONE (14:48)
== END 2018-05-09 14:50 | disposition home or self-care (01) ==
LOC: ERS 13:55
DX: S61.411A Laceration without foreign body of right hand, initial encounter (principal); W26.0XXA Contact with knife, initial encounter
CPT/HCPCS: 12001; 90471; 90715; J2001

== ENCOUNTER 2018-11-14 10:27 | Outpatient (CLI) | payer BC ==
--- NOTE | 2018-11-14 13:34 | MMO ---
Bilateral MAMMO Bilat Screen [facility]. CLINICAL HISTORY: Patient is 63 years old and is seen for screening. The patient has no family history of breast cancer. The patient has no personal history of cancer. The patient has a history of bilateral Implants in 2015 - mastopexy. VIEWS: The views performed were: bilateral craniocaudal; bilateral mediolateral oblique; and bilateral Implant displaced with tomosynthesis. FILMS COMPARED: The present examination has been compared to prior imaging studies performed at [facility] [place] [facility] on 06/07/2014, 07/24/2015, 10/26/2016 and 11/10/2017. MAMMOGRAM FINDINGS: There are scattered fibroglandular densities. Benign calcifications are noted bilaterally. Bilateral implants are stable. There are no suspicious masses, suspicious calcifications, or new areas of architectural distortion. IMPRESSION: THERE IS NO MAMMOGRAPHIC EVIDENCE OF MALIGNANCY. A ROUTINE FOLLOW-UP MAMMOGRAM IN 1 YEAR IS RECOMMENDED. THE RESULTS OF THIS EXAM WERE SENT TO THE PATIENT. ACR BI-RADS Category 2 - Benign finding MAMMOGRAPHY NOTE: 1. A negative mammogram report should not delay a biopsy if a dominant of clinically suspicious mass is present. 2. Approximately 10% to 15% of breast cancers are not detected by mammography. 3. Adenosis and dense breasts may obscure an underlying neoplasm.
== END 2018-11-14 10:28 | disposition home or self-care (01) ==
LOC: BICMAMMO 10:27
PROVIDERS: ATTEND Family Medicine
DX: Z12.31 Encounter for screening mammogram for malignant neoplasm of breast (principal)
CPT/HCPCS: 77063; 77067

== ENCOUNTER 2020-03-05 14:50 | Outpatient (CLI) | payer OTHER ==
--- NOTE | 2020-03-05 15:30 | RAD ---
Exam:2 views left hip HISTORY: Pain. COMPARISON: None FINDINGS: Contour of the left femoral head is maintained. No fracture. Preserved hip joint space. Visualized sacrum and bony pelvis are intact. Mild degenerative change of the symphysis pubis. IMPRESSION: No radiographic evidence of significant degenerative change or fracture.
== END 2020-03-05 14:51 | disposition home or self-care (01) ==
LOC: BICRAD 14:50
PROVIDERS: ATTEND Family Medicine
DX: M19.90 Unspecified osteoarthritis, unspecified site (principal)

== ENCOUNTER 2020-05-02 09:17 | Outpatient (CLI) | payer OTHER ==
--- NOTE | 2020-05-02 10:43 | RAD ---
XR Lumbar Spine 2 Or 3 View History: Back pain Comparison: CT abdomen and pelvis 2018 Findings: Mild dextroscoliosis lumbar spine. No acute fracture or malalignment. 2 to 3 mm L4-5 retrolisthesis. Mild L5-S1 degenerative disc space height loss. SI joints are normal f or age. Phleboliths in the pelvis. No dilated loops of large or small bowel. Moderate facet arthrosis L3-S1. Impression: Mild-moderate spondylosis with low-grade dextroscoliosis. No acute osseous abnormality.
--- NOTE | 2020-05-02 11:30 | MMO ---
Bilateral MAMMO Bilat Screen [facility]. CLINICAL HISTORY: Patient is 64 years old and is seen for screening. The patient has no family history of breast cancer. The patient has no personal history of cancer. The patient has a history of bilateral Implants in 2015 - mastopexy. VIEWS: The views performed were: bilateral craniocaudal; bilateral craniocaudal with tomosynthesis; bilateral mediolateral oblique; bilateral mediolateral oblique with tomosynthesis; and bilateral Implant displaced with tomosynthesis. FILMS COMPARED: The present examination has been compared to prior imaging studies performed at [facility] on 07/24/2015, 10/26/2016, 11/10/2017 and 11/14/2018. This study has been interpreted with the assistance of computer-aided detection. MAMMOGRAM FINDINGS: There are scattered fibroglandular densities. Benign calcifications are noted. Bilateral implants are stable. There are no suspicious masses, suspicious calcifications, or new areas of architectural distortion. IMPRESSION: THERE IS NO MAMMOGRAPHIC EVIDENCE OF MALIGNANCY. A ROUTINE FOLLOW-UP MAMMOGRAM IN 1 YEAR IS RECOMMENDED. THE RESULTS OF THIS EXAM WERE SENT TO THE PATIENT. ACR BI-RADS Category 2 - Benign finding MAMMOGRAPHY NOTE: 1. A negative mammogram report should not delay a biopsy if a dominant of clinically suspicious mass is present. 2. Approximately 10% to 15% of breast cancers are not detected by mammography. 3. Adenosis and dense breasts may obscure an underlying neoplasm. Reported by: SANTANA LAWRENCE MD Electonically Signed: [id number]
== END 2020-05-02 09:18 | disposition home or self-care (01) ==
LOC: BICMAMMO 09:17
PROVIDERS: ATTEND Family Medicine
DX: Z12.31 Encounter for screening mammogram for malignant neoplasm of breast (principal); M54.5 Low back pain; M47.816 Spondylosis without myelopathy or radiculopathy, lumbar region; M41.9 Scoliosis, unspecified
CPT/HCPCS: 72100; 77063; 77067

== ENCOUNTER 2021-04-06 09:53 | Outpatient (CLI) | payer OTHER ==
[2021-04-06 10:39] LABS: #Basophils 0.1 10x3/uL (0.0-0.2); #Eosinphils 0.2 10x3/uL (0.0-0.5); #Monocytes 0.3 10x3/uL (0.0-1.1); #Neutrophils 2.2 10x3/uL (1.5-8.4); %Basophils 1.1 % (0.0-2.0); %Eosinophils 4.6 % (0.0-6.0); %Monocytes 6.9 % (0.0-10.0); %Neutrophils 47.2 % (40.0-75.0); Hemoglobin 13.1 g/dL (12.0-15.5); Mean Corpuscular HGB CONC 32.8 g/dL (32.0-36.0); Mean Corpuscular Volume 94.5 fl (81.6-98.3); Mean Platelet Volume 9.8 fl (7.4-10.4); Platelet Count 415 10x3/uL (150-450); RBC Distribution Width 13.3 % (11.5-14.5); Red Blood Cell (RBC) Count 4.22 10x6/uL (3.90-5.03); White Blood Cell (WBC) Count 4.8 10x3/uL (3.5-10.5)
[2021-04-06 10:49] LABS: ALT (SGPT) 17 U/L (8-55); AST (SGOT) 20 U/L (5-34); Albumin 3.8 g/dL (3.4-4.8); Alkaline Phosphatase 61 U/L (40-110); Anion Gap 14 mmol/L (10-20); BUN (Urea Nitrogen) 13 mg/dL (9.8-20.1); Bilirubin, Total 0.2 mg/dL (0.2-1.2); Calc. Creatinine Clearance 0 mL/min (70-130); Calcium 8.5 mg/dL (7.8-10.44); Carbon Dioxide 24 mmol/L (23-31); Chloride 108 mmol/L (98-107); Globulin 2.7 g/dL (2.4-3.5); Glucose 91 mg/dL (80-115); Potassium 4.5 mmol/L (3.5-5.1); Protein, Total 6.5 g/dL (5.8-8.1); Sodium 141 mmol/L (136-145)
[2021-04-06 17:37] LABS: SARS-CoV-2 PCR by NAA Not Detected (NotDetected)
== END 2021-04-06 09:54 | disposition home or self-care (01) ==
LOC: LABBT 09:53
PROVIDERS: ATTEND Surgery
DX: Z01.818 Encounter for other preprocedural examination (principal); K64.9 Unspecified hemorrhoids; Z20.822 Contact with and (suspected) exposure to COVID-19
CPT/HCPCS: 80053; 85025; 93005; 93010; U0003; U0005

== ENCOUNTER 2021-04-08 07:28 | Day surgery (SDC) | payer OTHER ==
[2021-04-07 10:46] VITALS: BMI 20.7
[2021-04-08] MEDS ORDERED: cefOXitin Sodium/Dextrose 2 GM/50 ML BAG ONE (07:45)
[2021-04-08] MEDS ORDERED: Midazolam HCl 2 mg/2 ml Vial ONE (09:11)
[2021-04-08] MEDS ORDERED: Fentanyl 100 MCG/2 ML VIAL ONE ×3 (09:11→10:54)
[2021-04-08] MEDS ORDERED: Bupivacaine 0.25% HCL 30 ML VIAL ONE (09:30)
[2021-04-08] MEDS ORDERED: Bacitracin Zinc Ointment 30 gm TUBE ONE (09:30)
[2021-04-08] MEDS ORDERED: Lidocaine 1% w/Epinephrine 1:100K 20 ML VIAL ONE (09:30)
[2021-04-08] MEDS ORDERED: PROPOFOL 200 MG/20 ML VIAL ONE (09:44)
[2021-04-08] MEDS ORDERED: Dexamethasone 20 MG/5 ML VIAL ONE (09:44)
[2021-04-08] MEDS ORDERED: Ketorolac Tromethamine 30 MG/ML VIAL ONE (09:44)
[2021-04-08] MEDS ORDERED: Ondansetron PF 4 MG/2 ML Vial ONE (09:44)
[2021-04-08] MEDS ORDERED: Rocuronium Bromide 10 MG/ML (10ML VIAL) ONE (09:44)
[2021-04-08] MEDS ORDERED: Glycopyrrolate 0.2 MG/ML 5 ML SYRINGE ONE (09:44)
[2021-04-08] MEDS ORDERED: diphenhydrAMINE 50 MG/ML VIAL ONE (09:44)
[2021-04-08] MEDS ORDERED: Lidocaine 1% PF 5 ML VIAL ONE (09:44)
== END 2021-04-08 13:15 | disposition home or self-care (01) ==
LOC: SDC 07:28
PROVIDERS: ATTEND Surgery
PROC: 06BY0ZC Excision of Hemorrhoidal Plexus, Open Approach (ICD-10-PCS; principal; 2021-04-08)
DX: K64.2 Third degree hemorrhoids (principal); J45.909 Unspecified asthma, uncomplicated; E89.0 Postprocedural hypothyroidism; Z90.710 Acquired absence of both cervix and uterus; Z98.890 Other specified postprocedural states; Z88.2 Allergy status to sulfonamides; Z88.5 Allergy status to narcotic agent; Z88.8 Allergy status to other drugs, medicaments and biological substances; Z79.82 Long term (current) use of aspirin; Z79.890 Hormone replacement therapy; Z79.899 Other long term (current) drug therapy
CPT/HCPCS: 88304; J0694; J1100; J1200; J1885; J2250; J2405; J2704; J3010; S0020

== ENCOUNTER 2021-10-27 10:07 | Outpatient (CLI) | payer OTHER | END 2021-10-27 10:08 | disposition home or self-care (01) | LOC: BICMAMMO 10:07 | PROVIDERS: ATTEND Family Medicine | DX: Z12.31 Encounter for screening mammogram for malignant neoplasm of breast (principal); Z98.82 Breast implant status | CPT/HCPCS: 77063; 77067 ==

== ENCOUNTER 2021-10-29 09:42 | Outpatient (CLI) | payer OTHER | END 2021-10-29 09:43 | disposition home or self-care (01) | LOC: BICMAMMO 09:42 | PROVIDERS: ATTEND Family Medicine | DX: R92.8 Other abnormal and inconclusive findings on diagnostic imaging of breast (principal); Z98.82 Breast implant status | CPT/HCPCS: G0279 ==

== ENCOUNTER 2022-04-26 11:38 | Outpatient (CLI) | payer OTHER | END 2022-04-26 11:39 | disposition home or self-care (01) | LOC: BICRAD 11:38 | PROVIDERS: ATTEND Family Medicine | DX: M16.11 Unilateral primary osteoarthritis, right hip (principal) ==

== ENCOUNTER 2023-04-04 12:40 | Emergency (ER) | payer OTHER ==
[~2023-04-04 12:40] MED LIST changes: -ISOVUE-370 76%-LOCM 1 ML ONE; +Iopamidol-370 76% 500 ML MDV (1 ML CHARGE) ONE
[2023-04-04 13:38] LABS: #Basophils 0.1 thou/uL (0.0-0.2); #Eosinphils 0.3 thou/uL (0.0-0.7); #Monocytes 0.3 thou/uL (0.11-0.59); #Neutrophils 3.8 thou/uL (1.40-6.50); %Eosinophils 4.7 % (0.0-10.0); %Lymphocytes 36.3 % (21.0-51.0); %Monocytes 4.4 % (0.0-10.0); %Neutrophils 53.3 % (42.0-75.0); Hematocrit 41.7 % (36.0-47.0); Hemoglobin 13.7 g/dL (12.0-16.0); Mean Corpuscular HGB CONC 32.9 g/dL (32.0-36.0); Mean Corpuscular Hemoglobin 30.9 pg (27.0-31.0); Mean Corpuscular Volume 93.9 fl (78.0-98.0); Mean Platelet Volume 9.6 fL (7.4-10.4); Platelet Count 401 10x3/uL (130-400); RBC Distribution Width 13.5 % (11.5-14.5); Red Blood Cell (RBC) Count 4.44 mill/uL (4.20-5.40); White Blood Cell (WBC) Count 7.1 10x3/uL (4.8-10.8)
[2023-04-04 13:50] LABS: Prothrombin Time 13.3 sec (12.0-14.7)
[2023-04-04 14:05] LABS: ALT (SGPT) 11 U/L (8-55); AST (SGOT) 17 U/L (5-34); Albumin 4.3 g/dL (3.4-4.8); Alkaline Phosphatase 68 U/L (40-110); Anion Gap 12 mmol/L (10-20); BUN (Urea Nitrogen) 11 mg/dL (9.8-20.1); Bilirubin, Total 0.5 mg/dL (0.2-1.2); Calc. Creatinine Clearance 0 mL/min (70-130); Calcium 9.4 mg/dL (7.8-10.44); Carbon Dioxide 24 mmol/L (23-31); Chloride 105 mmol/L (98-107); Estimated GFR 83; Globulin 2.3 g/dL (2.4-3.5); Glucose 135 mg/dL (80-115); Potassium 3.9 mmol/L (3.5-5.1); Protein, Total 6.6 g/dL (5.8-8.1); Sodium 137 mmol/L (136-145)
== END 2023-04-04 16:38 | disposition home or self-care (01) ==
LOC: ERS 12:40
DX: I73.9 Peripheral vascular disease, unspecified (principal); E03.9 Hypothyroidism, unspecified; Z79.890 Hormone replacement therapy
CPT/HCPCS: 36415; 75635; 80053; 85025; 85610; 85730; Q9967

== ENCOUNTER 2023-07-22 11:34 | Outpatient (CLI) | payer MEDICARE | END 2023-07-22 11:35 | disposition home or self-care (01) | LOC: BICMAMMO 11:34 | PROVIDERS: ATTEND Family Medicine | DX: Z12.31 Encounter for screening mammogram for malignant neoplasm of breast (principal); Z98.82 Breast implant status; Z98.890 Other specified postprocedural states | CPT/HCPCS: 77063; 77067 ==

== ENCOUNTER 2025-04-02 08:34 | Outpatient (CLI) | payer OTHER | END 2025-04-02 08:35 | disposition home or self-care (01) | LOC: BICCT 08:34 | PROVIDERS: ATTEND Internal Medicine Cardiovascular Disease | DX: Z13.6 Encounter for screening for cardiovascular disorders (principal); E78.00 Pure hypercholesterolemia, unspecified; Z82.49 Family history of ischemic heart disease and other diseases of the circulatory system | CPT/HCPCS: 75571 ==